=== PATIENT | female | born 1990 ===

== ENCOUNTER 2021-08-20 23:50 | Emergency (ER) | payer OTHER ==
[2021-08-21 00:17] VITALS: BP 121/87
[2021-08-21] MEDS ORDERED: ACETAMINOPHEN 500 MG TAB PO ONE (02:05)
--- NOTE | 2021-08-21 02:39 | Emergency Department Report ---
ED Abdominal Pain HPI - General Chief Complaint: Abdominal Pain Stated Complaint: 5MTS PREG ABD PAIN Source: patient Mode of arrival: Ambulatory Limitations: No Limitations - History of Present Illness Initial Comments: Patient is a A0 31-year-old female with no past medical history and who is approximately 18 to 19 weeks gestation presents to the ED with complaint of acute onset persistent low abdominal pain that radiates to the right lower quadrant area for the last 12 hours. 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 Patient states that the pain is constant and worse with movement or palpation. Patient denies vaginal bleeding, vaginal discharge, dysuria, urinary frequency and urgency, low back pain, chest pain, shortness of breath, nausea and vomiting or diarrhea, change in vision, sore throat, fever and chills or traumatic injury. MD Complaint: abdominal pain (Right lower quadrant and suprapubic pain), other (Patient is 19 weeks gestation) -: Sudden, hour(s) (12) Location: RLQ, suprapubic Radiation: RLQ, suprapubic, R flank Migration to: no migration Severity scale (0 -10): 4 Quality: cramping, aching, sharp Consistency: constant Improves With: nothing Worsens With: movement Associated Symptoms: denies other symptoms. denies: nausea, vomiting, diarrhea, fever, constipation, hematemesis, hematochezia, melena, hematuria, anorexia, syncope - Related Data Previous Rx's Medication Instructions Recorded Last Taken Type Acetaminophen [Tylenol] 500 mg PO Q6HR PRN #30 tablet 08/21/21 Unknown Rx cephALEXin [Keflex] 500 mg PO Q8HR #30 cap 08/21/21 Unknown Rx Allergies Allergy/AdvReac Type Severity Reaction Status Date / Time No Known Allergies Allergy Unverified 08/21/21 00:39 ED Review of Systems ROS: Stated complaint: 5MTS PREG ABD PAIN Other details as noted in HPI Constitutional: denies: chills, fever Eyes: denies: eye pain, eye discharge, vision change ENT: denies: ear pain, throat pain Respiratory: denies: cough, shortness of breath, wheezing Cardiovascular: denies: chest pain, palpitations Endocrine: no symptoms reported Gastrointestinal: abdominal pain (Right lower quadrant and suprapubic pain). denies: nausea, diarrhea Genitourinary: denies: urgency, dysuria, discharge Musculoskeletal: denies: back pain, joint swelling, arthralgia Skin: denies: rash, lesions Neurological: denies: headache, weakness, paresthesias Psychiatric: denies: anxiety, depression Hematological/Lymphatic: denies: easy bleeding, easy bruising ED Past Medical Hx - Past Medical History Previous Medical History?: No - Surgical History Past Surgical History?: No - Medications Home Medications: Home Medications Medication Instructions Recorded Confirmed Last Taken Type Acetaminophen [Tylenol] 500 mg PO Q6HR PRN #30 tablet 08/21/21 Unknown Rx cephALEXin [Keflex] 500 mg PO Q8HR #30 cap 08/21/21 Unknown Rx ED Physical Exam - General Limitations: No Limitations General appearance: alert, in no apparent distress - Head Head exam: Present: atraumatic, normocephalic, normal inspection - Eye Eye exam: Present: normal appearance, PERRL, EOMI Pupils: Present: normal accommodation - ENT ENT exam: Present: normal exam, normal orophraynx, mucous membranes moist, TM's normal bilaterally, normal external ear exam - Neck Neck exam: Present: normal inspection, full ROM - Respiratory Respiratory exam: Present: normal lung sounds bilaterally. Absent: respiratory distress, wheezes, rhonchi, stridor, chest wall tenderness, accessory muscle use, prolonged expiratory - Cardiovascular Cardiovascular Exam: Present: regular rate, normal rhythm, normal heart sounds. Absent: systolic murmur, diastolic murmur, rubs, gallop - GI/Abdominal GI/Abdominal exam: Present: soft, tenderness (Palpable right lower quadrant and suprapubic tenderness), normal bowel sounds. Absent: guarding, rebound, hyperactive bowel sounds, hypoactive bowel sounds, organomegaly - Extremities Exam Extremities exam: Present: normal inspection, full ROM, normal capillary refill - Back Exam Back exam: Present: normal inspection, full ROM. Absent: tenderness, CVA tenderness (R), CVA tenderness (L), muscle spasm, paraspinal tenderness, vertebral tenderness - Neurological Exam Neurological exam: Present: alert, oriented X3, CN II-XII intact, normal gait, reflexes normal - Psychiatric Psychiatric exam: Present: normal affect, normal mood - Skin Skin exam: Present: warm, dry, intact, normal color. Absent: rash ED Course Vital Signs 08/21/21 00:14 Temperature 98.7 F Pulse Rate 92 H Respiratory 16 Rate Blood Pressure 121/87 O2 Sat by Pulse 99 Oximetry ED Medical Decision Making - Lab Data Result diagrams: 08/21/21 02:09 08/21/21 02:09 - Radiology Data Radiology results: report reviewed, image reviewed [facility] [address] [place] [address] Ultrasound Report Signed Patient: JAYLEEN MENJIVAR MR#: [id number] : 1990 Acct:[id number] Age/Sex: 31 / F ADM Date: 08/20/21 Loc: ED Attending Dr: Ordering Physician: PILI RAHMAN Date of Service: 08/21/21 Procedure(s): US OB >= 14 weeks Fetus Accession Number(s): [id number] cc: PILI RAHMAN OBSTETRIC ULTRASOUND INDICATION: Pelvic and RLQ pain: 19 weeks gestation COMPARISON: No prior relevant imaging studies are available for comparison. TECHNIQUE: Transabdominal imaging was performed. FINDINGS: Single viable intrauterine is identified. lie: Breech. Heart rate: 144 bpm. measurements are as follows: Biparietal diameter 4.2 cm, 18 weeks 4 days Head circumference 16.5 cm, 19 weeks 1 day Abdominal circumference 12.2 cm, 17 weeks 6 days Femur length 2.5 cm, 17 weeks 4 days Amniotic fluid index is subjectively within normal limits. There is a grade 1 anterior placenta. Cervix is closed measuring 4 cm. CONCLUSION: Single viable intrauterine with sonographic gestational age of 18 weeks 2 days. Amniotic fluid index is subjectively within normal limits. Signer Name: Ash Quintanilla MD Signed: 08/21/2021 3:41 AM Workstation Name: [id number] Transcribed By: NANCY Dictated By: Ash Quintanilla MD Electronically Authenticated By: Ash Quintanilla MD Signed Date/Time: 08/21/21340 DD/ 8 TD/TT: - Medical Decision Making This is a A0 31-year-old female with no past medical history and who is approximately 18 to 19 weeks gestation presents to the ED with complaint of acute onset persistent low abdominal pain that radiates to the right lower quadrant area for the last 12 hours. 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 Patient states that the pain is constant and worse with movement or palpation. In the ED, patient is alert and oriented x3 and is not in any distress. Patient was treated for pain in the ED with Tylenol. Lab test results were reviewed and are all nonactionable except for mild urinary tract infection in urinalysis. Pelvic ultrasound showed a Single viable intrauterine with sonographic gestational age of 18 weeks 2 days with a heart rate of 144 bpm. Amniotic fluid index is subjectively within normal limits. On reevaluation, patient's pain is well controlled medica tion. Patient discharged home on pain medication and advised to follow-up with [facility] physician in 3 to 5 days for reevaluation. Patient was advised to observe complete pelvic rest avoid heavy lifting and strenuous physical activities. - Differential Diagnosis UTI; ovarian cyst; kidney stone; muscle strain Critical care attestation.: If time is entered above; I have spent that time in minutes in the direct care of this critically ill patient, excluding procedure time. ED Disposition Clinical Impression: Abdominal pain during in second trimester, Acute urinary tract infection Disposition: 01 HOME / SELF CARE / HOMELESS Is pt being admited?: No Does the pt Need Aspirin: No Condition: Stable Instructions: Abdominal Pain (ED), Abdominal Pain During , [id number], Urinary Tract Infection, Adult, [id number] Additional Instructions: All lab test results were reviewed and are all nonactionable except for mild urinary tract infection. Pelvic ultrasound showed a single live intrauterine of approximately 18 weeks and 2 days, and with a heart rate of 144 bpm. No other abnormalities were observed. Therefore maintain a complete pelvic rest with no heavy lifting or strenuous physical activity, follow-up with the [facility] physician in 3 to 5 days for reevaluation. Take pain medication as needed for pain with food. Return to the ED immediately if symptoms get worse. Prescriptions: Acetaminophen [Tylenol] 500 mg PO Q6HR PRN #30 tablet PRN Reason: Severe pain cephALEXin [Keflex] 500 mg PO Q8HR #30 cap Forms: Work/School Release Form(ED) Time of Disposition: 04:55 Print Language: MONGOLIAN
[2021-08-21 02:56] LABS: Basophils % (Auto) 0.3 % (0.0-1.8); Eosinophils # (Auto) 0.1 K/mm3 (0.0-0.4); Hematocrit 33.4 % (30.3-42.9); Hemoglobin 10.7 gm/dl (10.1-14.3); Lymphocytes # (Auto) 2.4 K/mm3 (1.2-5.4); Lymphocytes % (Auto) 22.1 % (13.4-35.0); Mean Corpuscular HGB Conc 32 % (30-34); Mean Corpuscular Volume 89 fl (79-97); Monocytes # (Auto) 0.6 K/mm3 (0.0-0.8); Monocytes % (Auto) 5.3 % (0.0-7.3); Platelet Count 328 K/mm3 (140-440); Red Blood Count 3.77 M/mm3 (3.65-5.03); Red Cell Distribution Width 13.5 % (13.2-15.2)
[2021-08-21 03:22] LABS: Alanine Aminotransferase 11 units/L (7-56); Albumin 3.7 g/dL (3.9-5); Blood Urea Nitrogen 9 mg/dL (7-17); Calcium 8.9 mg/dL (8.4-10.2); Hemolysis Index 5
[2021-08-21 03:23] LABS: BUN/Creatinine Ratio 18
--- NOTE | 2021-08-21 03:45 | Ultrasound Report ---
OBSTETRIC ULTRASOUND INDICATION: Pelvic and RLQ pain: 19 weeks gestation COMPARISON: No prior relevant imaging studies are available for comparison. TECHNIQUE: Transabdominal imaging was performed. FINDINGS: Single viable intrauterine is identified. lie: Breech. Heart rate: 144 bpm. measurements are as follows: Biparietal diameter 4.2 cm, 18 weeks 4 days Head circumference 16.5 cm, 19 weeks 1 day Abdominal circumference 12.2 cm, 17 weeks 6 days Femur length 2.5 cm, 17 weeks 4 days Amniotic fluid index is subjectively within normal limits. There is a grade 1 anterior placenta. Cerv ix is closed measuring 4 cm. CONCLUSION: Single viable intrauterine with sonographic gestational age of 18 weeks 2 days. Amniotic fl uid index is subjectively within normal limits. Signer Name: Ash Quintanilla MD Signed: 08/21/2021 3:41 AM Workstation Name: [id number]
[2021-08-21 04:16] LABS: Bacteria,Urine 1+ /HPF (Negative); Bilirubin,Urine NEG (Negative); Blood,Urine NEG (Negative); Color,Urine Yellow (Yellow); Mucus,Urine 3+ /HPF
== END 2021-08-21 05:10 | disposition home or self-care (01) ==
LOC: ED 23:50
DX: O23.42 Unspecified infection of urinary tract in pregnancy, second trimester (principal); O26.892 Other specified pregnancy related conditions, second trimester; R10.30 Lower abdominal pain, unspecified; Z3A.18 18 weeks gestation of pregnancy
CPT/HCPCS: 36415; 76805; 80053; 81001; 84703; 85025; 87086; 99284